=== PATIENT | female | born 1935 | race Caucasian/White ===

== ENCOUNTER 2023-05-15 20:47 | Inpatient (IN) | payer OTHER ==
[~2023-05-15] VITALS: Ht 170.2 cm; Wt 59.0 kg
[~2023-05-15 20:47] MED LIST: ALEN10TA25 PO; CALC-823 PO; GLIM2TAB PO; GLIP2.5T3 PO; LEVO25TA7 PO; LOSA-413 PO; METF-1069 PO; METO25TA3 PO; OSCD500 PO; POLY238P32 PO; PRAV10TA37 PO; PRO40 PO; PSYL575P22 PO
[2023-05-15 21:08] VITALS: BP_SYST 167; PULSE 90; RESP 18; TEMP 98.7; O2SAT 97
[2023-05-15 22:31] LABS: BASOPHILS % (AUTO) 0.3 % (0.0-2.0); EOSINOPHILS # (AUTO) 0.1 K/uL (0.0-0.4); EOSINOPHILS % (AUTO) 0.9 % (0.0-4.0); HEMATOCRIT 36.7 % (36-48); HEMOGLOBIN 12.2 g/dL (12.0-16.0); LYMPHOCYTES # (AUTO) 1.4 K/uL (1.0-5.5); LYMPHOCYTES % (AUTO) 18.2 % (20.5-51.5); MEAN CORPUSCULAR HEMOGLOBIN 28 pg (27-31); MEAN CORPUSCULAR HGB CONC 33 % (32-36); MEAN CORPUSCULAR VOLUME 84 fL (79.0-98.0); MONOCYTES # (AUTO) 0.5 K/uL (0.0-1.0); MONOCYTES % (AUTO) 6.7 % (1.7-9.3); NEUTROPHILS # (AUTO) 5.8 K/uL (1.8-7.7); NEUTROPHILS % (AUTO) 73.9 % (40.0-70.0); PLATELET COUNT (AUTO) 223 K/uL (130-430); RED BLOOD CELL COUNT(AUTO) 4.35 MIL/uL (4.2-6.2); RED CELL DISTRIBUTION WIDTH 14.7 % (9.0-15.0); WHITE BLOOD COUNT (AUTO) 7.8 K/uL (4.8-10.8)
[2023-05-15 22:43] LABS: ANION GAP 4 (5-15); CARBON DIOXIDE 31 mmol/L (23-29); CHLORIDE 98 mmol/L (98-107); CREATININE 0.92 mg/dL (0.55-1.30); GLUCOSE 299 mg/dL (74-106); POTASSIUM 4.9 mmol/L (3.5-5.1); SODIUM SERUM 133 mmol/L (136-145); UREA NITROGEN, BLOOD 21 mg/dL (8-21)
[2023-05-15] MEDS: ONDANSETRON HCL 4 MG/2 ML VIAL IVP ONE (22:44)
[2023-05-15] MEDS: ACETAMINOPHEN 500 MG TABLET PO ONE (22:45)
[2023-05-15 22:47] LABS: ALANINE AMINOTRANSFERASE 12 U/L (12-78); ALBUMIN 3.7 g/dL (3.4-4.8); ASPARTATE AMINOTRANSFERASE 7 U/L (10-37); BILIRUBIN,DIRECT 0.1 mg/dL (0.0-0.3); LIPASE 25 U/L (16-77); TOTAL BILIRUBIN 0.5 mg/dL (0.0-1.0); TOTAL PROTEIN, SERUM 7.7 g/dL (6.4-8.3)
[2023-05-15 22:51] LABS: BILIRUBIN,URINE NEGATIVE (NEGATIVE); CLARITY/URINE CLEAR (CLEAR); COLOR,URINE YELLOW (YELLOW); GLUCOSE,URINE 3+ (NEGATIVE); KETONES,URINE NEGATIVE (NEGATIVE); LEUKOCYTE ESTERASE ,URINE NEGATIVE (NEGATIVE); NITRITE, URINE NEGATIVE (NEGATIVE); PROTEIN URINE TRACE (NEGATIVE); UROBILINOGEN,URINE 0.2 (0.2-1.0)
[2023-05-15 22:53] LABS: BLOOD, URINE TRACE (NEGATIVE)
[2023-05-15 23:37] LABS: BACTERIA,URINE RARE /HPF (None Seen)
[2023-05-16] VITALS (9 sets, daily range): BP systolic 131–164; PULSE 93–111; RESP 13–18; TEMP 97.9–98.6; O2SAT 99–100
[2023-05-16] MEDS: ONDANSETRON HCL 4 MG/2 ML VIAL IVP ONE ×2 (02:19→03:04)
[2023-05-16] MEDS: MORPHINE 2 MG/ML INJ. SYRINGE IVP ONE (03:04)
[2023-05-16] MEDS: D5/0.45 NS 1,000 ML IV SCH (04:14)
[2023-05-16] MEDS ORDERED: GASTROGRAFIN 120 ML ONE ×2 (04:34→10:07)
[2023-05-16] MEDS ORDERED: EZET10TA30 PO (05:43)
[2023-05-16] MEDS ORDERED: PRAV20TA59 PO (05:43)
[2023-05-16] MEDS ORDERED: ALEN70TA27 PO (05:43)
[2023-05-16 11:34] LABS: PROTHROMBIN TIME 10.6 SECS (9.5-12.5)
[2023-05-16] MEDS ORDERED: NALOXONE HCL 0.4 MG/ML AMP (NARCAN) IVP PRN ×5 (12:00→19:00)
[2023-05-16] MEDS: HYDROmorphone 1 MG/ML INJ. CARTRIDGE ONE (12:18)
[2023-05-16] MEDS ORDERED: ceFAZolin SODIUM 2 GM VIAL ONE (17:20)
[2023-05-16] MEDS ORDERED: NS IRRIG SOLN 1000 ML IR ONE (17:20)
[2023-05-16] MEDS ORDERED: METOCLOPRAMIDE HCL 10 MG/2 ML VIAL ONE (17:20)
[2023-05-16] MEDS ORDERED: LR 1,000 ML IV.SOLN IV ONE (17:20)
[2023-05-16] MEDS ORDERED: BUPIVACAINE /PF 0.25% 30 ML VIAL INJ ONE (17:20)
[2023-05-16] MEDS ORDERED: SEVOFLURANE 15 MIN GAS INH ONE (17:20)
[2023-05-16] MEDS ORDERED: SUGAMMADEX SODIUM 200 MG/2 ML VIAL IV ONE (17:20)
[2023-05-16] MEDS ORDERED: ONDANSETRON HCL 4 MG/2 ML VIAL ONE (17:20)
[2023-05-16] MEDS ORDERED: PROPOFOL 200MG/ 20ML VIAL (DIPRIVAN) IV ONE (17:20)
[2023-05-16] MEDS ORDERED: WATER FOR IRRIGATION,STERILE 1,000 ML IRRIG.SOLN IR ONE (17:20)
[2023-05-16] MEDS ORDERED: ROCURONIUM BROMIDE 10 MG/ML (ZEMURON) ONE (17:20)
[2023-05-16] MEDS: INSULIN REGULAR, HUMAN 100 UNITS/ML, 3 ML VIAL (humuLIN R) SUBCUT PRN (17:26)
[2023-05-16] MEDS ORDERED: HYDROmorphone 1 MG/ML INJ. CARTRIDGE IVP PRN ×3 (19:00)
[2023-05-16] MEDS ORDERED: ONDANSETRON HCL 4 MG/2 ML VIAL IVP PRN (19:00)
[2023-05-16] MEDS ORDERED: hydrALAZINE HCL 20 MG/ML VIAL IV PRN (19:00)
[2023-05-16] MEDS: HYDROmorphone 1 MG/ML INJ. CARTRIDGE IVP PRN (23:13)
[2023-05-17] VITALS (19 sets, daily range): BP systolic 102–147; PULSE 102–109; RESP 12–24; TEMP 97.9–98.6; O2SAT 2–100
[2023-05-17] MEDS: INSULIN REGULAR, HUMAN 100 UNITS/ML, 3 ML VIAL (humuLIN R) ONE (01:13)
[2023-05-17] MEDS: HYDROmorphone 2 MG/ML VIAL ONE (01:13)
[2023-05-17 04:56] LABS: BASOPHILS % (AUTO) 0.1 % (0.0-2.0); HEMATOCRIT 33.9 % (36-48); HEMOGLOBIN 11.2 g/dL (12.0-16.0); LYMPHOCYTES # (AUTO) 1.1 K/uL (1.0-5.5); LYMPHOCYTES % (AUTO) 14.3 % (20.5-51.5); MEAN CORPUSCULAR HEMOGLOBIN 28 pg (27-31); MEAN CORPUSCULAR HGB CONC 33 % (32-36); MEAN CORPUSCULAR VOLUME 85 fL (79.0-98.0); MONOCYTES # (AUTO) 0.6 K/uL (0.0-1.0); NEUTROPHILS # (AUTO) 5.9 K/uL (1.8-7.7); NEUTROPHILS % (AUTO) 77.6 % (40.0-70.0); PLATELET COUNT (AUTO) 188 K/uL (130-430); RED BLOOD CELL COUNT(AUTO) 3.99 MIL/uL (4.2-6.2); RED CELL DISTRIBUTION WIDTH 14.5 % (9.0-15.0); WHITE BLOOD COUNT (AUTO) 7.5 K/uL (4.8-10.8)
[2023-05-17] MEDS: PIPERACILLIN/TAZO 3.375 GM in NS 50 ML IV SCH (05:12)
[2023-05-17 05:17] LABS: ALANINE AMINOTRANSFERASE 6 U/L (12-78); ALBUMIN 2.6 g/dL (3.4-4.8); ANION GAP 7 (5-15); ASPARTATE AMINOTRANSFERASE 11 U/L (10-37); CALCIUM 8.2 mg/dL (8.4-11.0); CARBON DIOXIDE 30 mmol/L (23-29); CHLORIDE 98 mmol/L (98-107); GLUCOSE 229 mg/dL (74-106); POTASSIUM 3.8 mmol/L (3.5-5.1); SODIUM SERUM 135 mmol/L (136-145); TOTAL BILIRUBIN 0.8 mg/dL (0.0-1.0); TOTAL PROTEIN, SERUM 5.7 g/dL (6.4-8.3); UREA NITROGEN, BLOOD 12 mg/dL (8-21)
[2023-05-17] MEDS: PIPERACILLIN/TAZOBACTAM 3.375 GM/VIAL (ZOSYN) IV ONE (05:29)
[2023-05-17] MEDS: ENOXAPARIN SODIUM 30 MG/0.3 ML SYRINGE SUBCUT SCH (09:03)
[2023-05-17] MEDS: MORPHINE 4 MG INJ. 4 MG/ML VIAL IVP PRN (09:23)
[2023-05-17] MEDS: COMMUNICATION ORDER XX ONE (10:15)
[2023-05-17] MEDS ORDERED: *TPN PER PHARMACY XX PRN (10:45)
[2023-05-17 11:00] LABS: PHOSPHORUS 3.4 mg/dL (2.7-4.5)
[2023-05-17] MEDS: LR 1,000 ML IV SCH (12:57)
[2023-05-17] MEDS: KCL 20 mEq in 100 mL (PREMIX) 100 ML IV ONE (13:14)
[2023-05-17] MEDS: HYDROmorphone 1 MG/ML INJ. CARTRIDGE IVP PRN (15:06)
[2023-05-17] MEDS: SODIUM CHLORIDE IV SCH (20:54)
[2023-05-17] MEDS: TPN CENTRAL IV SCH (20:54)
[2023-05-17] MEDS: [UNRECOGNIZED DRUG - OTHER] IV SCH (20:54)
[2023-05-17] MEDS: POTASSIUM CHLORIDE IV SCH (20:54)
[2023-05-18] VITALS (7 sets, daily range): BP systolic 110–136; PULSE 98–110; RESP 15–19; TEMP 96.6–98.5; O2SAT 95–100
[2023-05-18 04:43] LABS: BASOPHILS % (AUTO) 0.4 % (0.0-2.0); EOSINOPHILS # (AUTO) 0.2 K/uL (0.0-0.4); EOSINOPHILS % (AUTO) 1.9 % (0.0-4.0); HEMATOCRIT 30.2 % (36-48); HEMOGLOBIN 10.1 g/dL (12.0-16.0); MEAN CORPUSCULAR HEMOGLOBIN 29 pg (27-31); MEAN CORPUSCULAR HGB CONC 33 % (32-36); MEAN CORPUSCULAR VOLUME 85 fL (79.0-98.0); MONOCYTES # (AUTO) 1.1 K/uL (0.0-1.0); MONOCYTES % (AUTO) 12.4 % (1.7-9.3); NEUTROPHILS # (AUTO) 6.4 K/uL (1.8-7.7); NEUTROPHILS % (AUTO) 73.3 % (40.0-70.0); PLATELET COUNT (AUTO) 181 K/uL (130-430); RED BLOOD CELL COUNT(AUTO) 3.53 MIL/uL (4.2-6.2); RED CELL DISTRIBUTION WIDTH 14.6 % (9.0-15.0); WHITE BLOOD COUNT (AUTO) 8.7 K/uL (4.8-10.8)
[2023-05-18 04:54] LABS: ALANINE AMINOTRANSFERASE 11 U/L (12-78); ALBUMIN 2.4 g/dL (3.4-4.8); ANION GAP 4 (5-15); ASPARTATE AMINOTRANSFERASE 14 U/L (10-37); CALCIUM 7.6 mg/dL (8.4-11.0); CARBON DIOXIDE 30 mmol/L (23-29); CHLORIDE 99 mmol/L (98-107); CREATININE 1.03 mg/dL (0.55-1.30); GLUCOSE 249 mg/dL (74-106); PHOSPHORUS 3.2 mg/dL (2.7-4.5); POTASSIUM 4.1 mmol/L (3.5-5.1); SODIUM SERUM 133 mmol/L (136-145); TOTAL BILIRUBIN 0.8 mg/dL (0.0-1.0); TOTAL PROTEIN, SERUM 5.1 g/dL (6.4-8.3); TRIGLYCERIDES 24 mg/dL (30-150); UREA NITROGEN, BLOOD 23 mg/dL (8-21)
[2023-05-18 09:59] LABS: BASOPHILS % (AUTO) 0.2 % (0.0-2.0); EOSINOPHILS # (AUTO) 0.2 K/uL (0.0-0.4); EOSINOPHILS % (AUTO) 2.2 % (0.0-4.0); HEMATOCRIT 30.4 % (36-48); LYMPHOCYTES # (AUTO) 1.2 K/uL (1.0-5.5); LYMPHOCYTES % (AUTO) 15.1 % (20.5-51.5); MEAN CORPUSCULAR HEMOGLOBIN 28 pg (27-31); MEAN CORPUSCULAR HGB CONC 33 % (32-36); MEAN CORPUSCULAR VOLUME 85 fL (79.0-98.0); MONOCYTES % (AUTO) 12.8 % (1.7-9.3); NEUTROPHILS # (AUTO) 5.7 K/uL (1.8-7.7); NEUTROPHILS % (AUTO) 69.7 % (40.0-70.0); PLATELET COUNT (AUTO) 180 K/uL (130-430); RED BLOOD CELL COUNT(AUTO) 3.57 MIL/uL (4.2-6.2); RED CELL DISTRIBUTION WIDTH 14.7 % (9.0-15.0); WHITE BLOOD COUNT (AUTO) 8.2 K/uL (4.8-10.8)
[2023-05-18] MEDS: TPN CENTRAL IV SCH (21:12)
[2023-05-18] MEDS: SODIUM CHLORIDE IV SCH (21:12)
[2023-05-18] MEDS: POTASSIUM CHLORIDE IV SCH (21:12)
[2023-05-18] MEDS: [UNRECOGNIZED DRUG - OTHER] IV SCH (21:12)
[2023-05-19] VITALS (8 sets, daily range): BP systolic 124–153; PULSE 94–107; RESP 15–20; TEMP 96.7–99.7; O2SAT 93–98
[2023-05-19] MEDS: ONDANSETRON HCL 4 MG/2 ML VIAL IVP PRN (02:40)
[2023-05-19 05:57] LABS: BASOPHILS % (AUTO) 0.3 % (0.0-2.0); EOSINOPHILS # (AUTO) 0.1 K/uL (0.0-0.4); EOSINOPHILS % (AUTO) 1.9 % (0.0-4.0); HEMATOCRIT 28.1 % (36-48); HEMOGLOBIN 9.5 g/dL (12.0-16.0); LYMPHOCYTES % (AUTO) 15.9 % (20.5-51.5); MEAN CORPUSCULAR HEMOGLOBIN 28 pg (27-31); MEAN CORPUSCULAR HGB CONC 34 % (32-36); MEAN CORPUSCULAR VOLUME 85 fL (79.0-98.0); MONOCYTES # (AUTO) 0.8 K/uL (0.0-1.0); MONOCYTES % (AUTO) 11.6 % (1.7-9.3); NEUTROPHILS # (AUTO) 4.6 K/uL (1.8-7.7); NEUTROPHILS % (AUTO) 70.3 % (40.0-70.0); PLATELET COUNT (AUTO) 172 K/uL (130-430); RED BLOOD CELL COUNT(AUTO) 3.32 MIL/uL (4.2-6.2); RED CELL DISTRIBUTION WIDTH 14.3 % (9.0-15.0); WHITE BLOOD COUNT (AUTO) 6.6 K/uL (4.8-10.8)
[2023-05-19 06:22] LABS: ALANINE AMINOTRANSFERASE 6 U/L (12-78); ANION GAP 5 (5-15); ASPARTATE AMINOTRANSFERASE 6 U/L (10-37); CALCIUM 7.8 mg/dL (8.4-11.0); CARBON DIOXIDE 29 mmol/L (23-29); CHLORIDE 99 mmol/L (98-107); CREATININE 0.82 mg/dL (0.55-1.30); GLUCOSE 288 mg/dL (74-106); PHOSPHORUS 1.9 mg/dL (2.7-4.5); POTASSIUM 3.7 mmol/L (3.5-5.1); SODIUM SERUM 133 mmol/L (136-145); TOTAL BILIRUBIN 0.5 mg/dL (0.0-1.0); TOTAL PROTEIN, SERUM 5.5 g/dL (6.4-8.3); UREA NITROGEN, BLOOD 17 mg/dL (8-21)
[2023-05-19] MEDS: NA PHOS 30 MM in NS 250 ML IV ONE (11:48)
[2023-05-19 12:34] LABS: BASOPHILS % (AUTO) 0.1 % (0.0-2.0); EOSINOPHILS # (AUTO) 0.1 K/uL (0.0-0.4); EOSINOPHILS % (AUTO) 0.6 % (0.0-4.0); HEMATOCRIT 32.8 % (36-48); HEMOGLOBIN 10.9 g/dL (12.0-16.0); LYMPHOCYTES # (AUTO) 0.9 K/uL (1.0-5.5); LYMPHOCYTES % (AUTO) 10.8 % (20.5-51.5); MEAN CORPUSCULAR HEMOGLOBIN 28 pg (27-31); MEAN CORPUSCULAR HGB CONC 33 % (32-36); MEAN CORPUSCULAR VOLUME 86 fL (79.0-98.0); MONOCYTES # (AUTO) 0.7 K/uL (0.0-1.0); MONOCYTES % (AUTO) 9.4 % (1.7-9.3); NEUTROPHILS # (AUTO) 6.2 K/uL (1.8-7.7); NEUTROPHILS % (AUTO) 79.1 % (40.0-70.0); PLATELET COUNT (AUTO) 210 K/uL (130-430); RED BLOOD CELL COUNT(AUTO) 3.82 MIL/uL (4.2-6.2); RED CELL DISTRIBUTION WIDTH 14.3 % (9.0-15.0); WHITE BLOOD COUNT (AUTO) 7.9 K/uL (4.8-10.8)
[2023-05-19] MEDS ORDERED: PSYL575P22 PO (14:02)
[2023-05-19] MEDS ORDERED: SODIUM CHLORIDE IV SCH (21:00)
[2023-05-19] MEDS ORDERED: MAGNESIUM SULFATE IV SCH (21:00)
[2023-05-19] MEDS ORDERED: TPN CENTRAL IV SCH (21:00)
[2023-05-19] MEDS ORDERED: K PHOS IV SCH (21:00)
[2023-05-19] MEDS ORDERED: [UNRECOGNIZED DRUG - OTHER] IV SCH (21:00)
[2023-05-19] MEDS: K PHOS IV SCH (22:32)
[2023-05-19] MEDS: TPN CENTRAL IV SCH (22:32)
[2023-05-19] MEDS: [UNRECOGNIZED DRUG - OTHER] IV SCH (22:32)
[2023-05-19] MEDS: POTASSIUM CHLORIDE IV SCH (22:32)
[2023-05-19] MEDS: SODIUM CHLORIDE IV SCH (22:32)
[2023-05-19] MEDS: FAT EMULSIONS 250 ML IV SCH (22:37)
[2023-05-20 00:45] VITALS: BP_SYST 129; PULSE 99; RESP 19; TEMP 98.8; O2SAT 96
[2023-05-20 06:08] LABS: BASOPHILS % (AUTO) 0.2 % (0.0-2.0); EOSINOPHILS # (AUTO) 0.2 K/uL (0.0-0.4); EOSINOPHILS % (AUTO) 3.3 % (0.0-4.0); HEMATOCRIT 28.1 % (36-48); HEMOGLOBIN 9.4 g/dL (12.0-16.0); LYMPHOCYTES # (AUTO) 1.3 K/uL (1.0-5.5); LYMPHOCYTES % (AUTO) 20.8 % (20.5-51.5); MEAN CORPUSCULAR HEMOGLOBIN 29 pg (27-31); MEAN CORPUSCULAR HGB CONC 34 % (32-36); MEAN CORPUSCULAR VOLUME 85 fL (79.0-98.0); MONOCYTES # (AUTO) 0.8 K/uL (0.0-1.0); MONOCYTES % (AUTO) 13.2 % (1.7-9.3); NEUTROPHILS # (AUTO) 3.9 K/uL (1.8-7.7); NEUTROPHILS % (AUTO) 62.5 % (40.0-70.0); PLATELET COUNT (AUTO) 213 K/uL (130-430); RED BLOOD CELL COUNT(AUTO) 3.29 MIL/uL (4.2-6.2); WHITE BLOOD COUNT (AUTO) 6.2 K/uL (4.8-10.8)
[2023-05-20 06:28] LABS: ALANINE AMINOTRANSFERASE 10 U/L (12-78); ALBUMIN 1.9 g/dL (3.4-4.8); ANION GAP 6 (5-15); ASPARTATE AMINOTRANSFERASE 10 U/L (10-37); CALCIUM 7.7 mg/dL (8.4-11.0); CARBON DIOXIDE 30 mmol/L (23-29); CHLORIDE 100 mmol/L (98-107); CREATININE 0.81 mg/dL (0.55-1.30); GLUCOSE 178 mg/dL (74-106); PHOSPHORUS 2.6 mg/dL (2.7-4.5); POTASSIUM 3.5 mmol/L (3.5-5.1); SODIUM SERUM 136 mmol/L (136-145); TOTAL BILIRUBIN 0.4 mg/dL (0.0-1.0); TOTAL PROTEIN, SERUM 5.3 g/dL (6.4-8.3); UREA NITROGEN, BLOOD 13 mg/dL (8-21)
[2023-05-20 09:03] VITALS: BP_SYST 129; PULSE 64; RESP 18; TEMP 97.1; O2SAT 98
[2023-05-20 14:23] VITALS: BP_SYST 131; PULSE 102; RESP 18; TEMP 97.7; O2SAT 95
[2023-05-20 16:57] VITALS: BP_SYST 144; PULSE 93; RESP 16; TEMP 98.4; O2SAT 99
[2023-05-20 20:15] VITALS: BP_SYST 146; PULSE 97; RESP 16; TEMP 97.8; O2SAT 95
[2023-05-21] VITALS (7 sets, daily range): BP systolic 142–155; PULSE 84–95; RESP 16–17; TEMP 96.7–98.1; O2SAT 94–97
[2023-05-21 06:52] LABS: BASOPHILS % (AUTO) 0.4 % (0.0-2.0); EOSINOPHILS # (AUTO) 0.3 K/uL (0.0-0.4); EOSINOPHILS % (AUTO) 4.2 % (0.0-4.0); HEMATOCRIT 28.1 % (36-48); HEMOGLOBIN 9.4 g/dL (12.0-16.0); LYMPHOCYTES # (AUTO) 1.7 K/uL (1.0-5.5); LYMPHOCYTES % (AUTO) 26.5 % (20.5-51.5); MEAN CORPUSCULAR HEMOGLOBIN 28 pg (27-31); MEAN CORPUSCULAR HGB CONC 34 % (32-36); MEAN CORPUSCULAR VOLUME 85 fL (79.0-98.0); MONOCYTES # (AUTO) 0.8 K/uL (0.0-1.0); MONOCYTES % (AUTO) 13.6 % (1.7-9.3); NEUTROPHILS # (AUTO) 3.4 K/uL (1.8-7.7); NEUTROPHILS % (AUTO) 55.3 % (40.0-70.0); PLATELET COUNT (AUTO) 233 K/uL (130-430); RED BLOOD CELL COUNT(AUTO) 3.33 MIL/uL (4.2-6.2); RED CELL DISTRIBUTION WIDTH 13.8 % (9.0-15.0); WHITE BLOOD COUNT (AUTO) 6.2 K/uL (4.8-10.8)
[2023-05-21 07:01] LABS: ALANINE AMINOTRANSFERASE 17 U/L (12-78); ALBUMIN 1.8 g/dL (3.4-4.8); ANION GAP 6 (5-15); ASPARTATE AMINOTRANSFERASE 16 U/L (10-37); CALCIUM 7.9 mg/dL (8.4-11.0); CARBON DIOXIDE 29 mmol/L (23-29); CHLORIDE 100 mmol/L (98-107); CREATININE 0.66 mg/dL (0.55-1.30); GLUCOSE 250 mg/dL (74-106); PHOSPHORUS 2.3 mg/dL (2.7-4.5); POTASSIUM 3.3 mmol/L (3.5-5.1); SODIUM SERUM 135 mmol/L (136-145); TOTAL BILIRUBIN 0.4 mg/dL (0.0-1.0); TOTAL PROTEIN, SERUM 5.3 g/dL (6.4-8.3); UREA NITROGEN, BLOOD 11 mg/dL (8-21)
[2023-05-21] MEDS: SODIUM CHLORIDE IV SCH (09:43)
[2023-05-21] MEDS: [UNRECOGNIZED DRUG - OTHER] IV SCH (09:43)
[2023-05-21] MEDS: POTASSIUM CHLORIDE IV SCH (09:43)
[2023-05-21] MEDS: TPN CENTRAL IV SCH (09:43)
[2023-05-21] MEDS: MILK OF MAGNESIA 30 ML UDC PO ONE (11:47)
[2023-05-21] MEDS: POTASSIUM CHLORIDE 20 MEQ TABLET.ER PO ONE (11:47)
[2023-05-21] MEDS: traMADol HCL HCL 50 MG TABLET (ULTRAM) PO SCH (16:06)
[2023-05-21] MEDS ORDERED: TPN CENTRAL 0.0001 ML, SODIUM CHLORIDE 60 MEQ, POTASSIUM CHLORIDE 20 MEQ, K PHOS 15 MM,... IV SCH (21:00)
[2023-05-22 01:07] VITALS: BP_SYST 139; PULSE 95; RESP 15; TEMP 97.9; O2SAT 92
[2023-05-22 04:22] LABS: BASOPHILS % (AUTO) 0.7 % (0.0-2.0); EOSINOPHILS # (AUTO) 0.4 K/uL (0.0-0.4); EOSINOPHILS % (AUTO) 5.8 % (0.0-4.0); HEMATOCRIT 28.3 % (36-48); HEMOGLOBIN 9.5 g/dL (12.0-16.0); LYMPHOCYTES # (AUTO) 2.6 K/uL (1.0-5.5); LYMPHOCYTES % (AUTO) 41.6 % (20.5-51.5); MEAN CORPUSCULAR HEMOGLOBIN 28 pg (27-31); MEAN CORPUSCULAR HGB CONC 34 % (32-36); MEAN CORPUSCULAR VOLUME 84 fL (79.0-98.0); MONOCYTES # (AUTO) 0.8 K/uL (0.0-1.0); MONOCYTES % (AUTO) 12.6 % (1.7-9.3); NEUTROPHILS # (AUTO) 2.4 K/uL (1.8-7.7); NEUTROPHILS % (AUTO) 39.3 % (40.0-70.0); PLATELET COUNT (AUTO) 243 K/uL (130-430); RED BLOOD CELL COUNT(AUTO) 3.35 MIL/uL (4.2-6.2); RED CELL DISTRIBUTION WIDTH 14.3 % (9.0-15.0); WHITE BLOOD COUNT (AUTO) 6.2 K/uL (4.8-10.8)
[2023-05-22 04:30] LABS: ALANINE AMINOTRANSFERASE 17 U/L (12-78); ALBUMIN 1.9 g/dL (3.4-4.8); ANION GAP 5 (5-15); ASPARTATE AMINOTRANSFERASE 16 U/L (10-37); CALCIUM 7.8 mg/dL (8.4-11.0); CARBON DIOXIDE 31 mmol/L (23-29); CHLORIDE 100 mmol/L (98-107); CREATININE 0.69 mg/dL (0.55-1.30); GLUCOSE 128 mg/dL (74-106); PHOSPHORUS 2.8 mg/dL (2.7-4.5); SODIUM SERUM 136 mmol/L (136-145); TOTAL BILIRUBIN 0.3 mg/dL (0.0-1.0); TOTAL PROTEIN, SERUM 5.1 g/dL (6.4-8.3); UREA NITROGEN, BLOOD 8 mg/dL (8-21)
[2023-05-22 08:00] VITALS: BP_SYST 168; PULSE 87; TEMP 97.6; O2SAT 96
[2023-05-22 08:15] VITALS: O2SAT 96
[2023-05-22] MEDS ORDERED: LOSA25TA18 PO (09:22)
[2023-05-22 11:55] VITALS: BP_SYST 141; PULSE 101; RESP 18; TEMP 97.6; O2SAT 94
[2023-05-22 13:29] LABS: BASOPHILS % (AUTO) 0.4 % (0.0-2.0); EOSINOPHILS # (AUTO) 0.2 K/uL (0.0-0.4); EOSINOPHILS % (AUTO) 2.5 % (0.0-4.0); HEMOGLOBIN 10.5 g/dL (12.0-16.0); LYMPHOCYTES # (AUTO) 1.5 K/uL (1.0-5.5); LYMPHOCYTES % (AUTO) 18.3 % (20.5-51.5); MEAN CORPUSCULAR HEMOGLOBIN 28 pg (27-31); MEAN CORPUSCULAR HGB CONC 33 % (32-36); MEAN CORPUSCULAR VOLUME 86 fL (79.0-98.0); MONOCYTES # (AUTO) 0.9 K/uL (0.0-1.0); MONOCYTES % (AUTO) 10.9 % (1.7-9.3); NEUTROPHILS # (AUTO) 5.5 K/uL (1.8-7.7); NEUTROPHILS % (AUTO) 67.9 % (40.0-70.0); PLATELET COUNT (AUTO) 264 K/uL (130-430); RED BLOOD CELL COUNT(AUTO) 3.73 MIL/uL (4.2-6.2); WHITE BLOOD COUNT (AUTO) 8.1 K/uL (4.8-10.8)
[2023-05-22 16:22] VITALS: BP_SYST 145; PULSE 101; RESP 22; TEMP 97.5; O2SAT 95
[2023-05-22 17:36] VITALS: BP_SYST 145; PULSE 101; RESP 22; TEMP 97.5; O2SAT 95
== END 2023-05-22 17:45 | disposition home health service (06) | DRG 337 ==
LOC: SED 20:47 → SMU 05-16 02:55 → SIC 05-16 22:39 → SMU 05-17 17:00 → STU 05-17 23:18 → SMU 05-20 17:40
PROVIDERS: ADMIT Specialist; ATTEND Specialist
PROC: 0DH67UZ Insertion of Feeding Device into Stomach, Via Natural or Artificial Opening (ICD-10-PCS; 2023-05-16)
PROC: 0DNC0ZZ Release Ileocecal Valve, Open Approach (ICD-10-PCS; 2023-05-16)
PROC: 0DN80ZZ Release Small Intestine, Open Approach (ICD-10-PCS; 2023-05-16)
PROC: 0DNU0ZZ Release Omentum, Open Approach (ICD-10-PCS; principal; 2023-05-16 17:31)
PROC: 02HV33Z Insertion of Infusion Device into Superior Vena Cava, Percutaneous Approach (ICD-10-PCS; 2023-05-17)
DX: K56.50 Intestinal adhesions [bands], unspecified as to partial versus complete obstruction (principal); E78.5 Hyperlipidemia, unspecified; M81.0 Age-related osteoporosis without current pathological fracture; I11.9 Hypertensive heart disease without heart failure; E03.9 Hypothyroidism, unspecified; E11.9 Type 2 diabetes mellitus without complications; Z79.899 Other long term (current) drug therapy
CPT/HCPCS: 36415; 71045; 74018; 74240; 74250; 80048; 80053; 80076; 81000; 81001; 81015; 82948; 83690; 83735; 84100; 84478; 85025; 85610; 87081; 87086; 93005; 93306; 94760; 96374; 97110-GP; 97116-GP; 97530-GP; 99285; G0378; J1170; J1650; J1815; J2270; J2405; J2543; J2704; J2765; J3475; J3480; J3490; J7050; J7120; J7131; Q9963; Q9967

== ENCOUNTER 2023-11-03 18:45 | Emergency (ER) | payer OTHER ==
[~2023-11-03] VITALS: Ht 165.1 cm; Wt 59.0 kg
[~2023-11-03 18:45] MED LIST changes: -ALEN10TA25 PO; +ALEN70TA27 PO; -CALC-823 PO; +EZET10TA30 PO; -GLIP2.5T3 PO; -LOSA-413 PO; +LOSA25TA18 PO; -METF-1069 PO; -METO25TA3 PO; -OSCD500 PO; -POLY238P32 PO; -PRAV10TA37 PO; +PRAV20TA59 PO; -PRO40 PO
[2023-11-03 18:53] VITALS: BP_SYST 171; PULSE 82; RESP 20; TEMP 98.5; O2SAT 99
[2023-11-03 19:30] LABS: BILIRUBIN,URINE NEGATIVE (NEGATIVE); BLOOD, URINE NEGATIVE (NEGATIVE); CLARITY/URINE CLEAR (CLEAR); COLOR,URINE YELLOW (YELLOW); GLUCOSE,URINE NEGATIVE (NEGATIVE); KETONES,URINE NEGATIVE (NEGATIVE); LEUKOCYTE ESTERASE ,URINE NEGATIVE (NEGATIVE); NITRITE, URINE NEGATIVE (NEGATIVE); PH,URINE 7.5 (5.0-8.0); PROTEIN URINE NEGATIVE (NEGATIVE); UROBILINOGEN,URINE 0.2 (0.2-1.0)
[2023-11-03] MEDS: KETOROLAC TROMETHAMINE 30 MG VIAL IVP ONE (19:37)
[2023-11-03 19:50] LABS: BASOPHILS % (AUTO) 0.4 % (0.0-2.0); EOSINOPHILS # (AUTO) 0.1 K/uL (0.0-0.4); EOSINOPHILS % (AUTO) 1.5 % (0.0-4.0); HEMOGLOBIN 11.1 g/dL (12.0-16.0); LYMPHOCYTES # (AUTO) 1.7 K/uL (1.0-5.5); LYMPHOCYTES % (AUTO) 25.6 % (20.5-51.5); MEAN CORPUSCULAR HEMOGLOBIN 29 pg (27-31); MEAN CORPUSCULAR HGB CONC 34 % (32-36); MEAN CORPUSCULAR VOLUME 85 fL (79.0-98.0); MONOCYTES # (AUTO) 0.6 K/uL (0.0-1.0); MONOCYTES % (AUTO) 8.6 % (1.7-9.3); NEUTROPHILS # (AUTO) 4.1 K/uL (1.8-7.7); NEUTROPHILS % (AUTO) 63.9 % (40.0-70.0); PLATELET COUNT (AUTO) 224 K/uL (130-430); RED BLOOD CELL COUNT(AUTO) 3.88 MIL/uL (4.2-6.2); RED CELL DISTRIBUTION WIDTH 15.6 % (9.0-15.0); WHITE BLOOD COUNT (AUTO) 6.5 K/uL (4.8-10.8)
[2023-11-03 20:00] LABS: ALANINE AMINOTRANSFERASE 20 U/L (12-78); ALBUMIN 3.8 g/dL (3.4-4.8); ANION GAP 6 (5-15); ASPARTATE AMINOTRANSFERASE 21 U/L (10-37); BILIRUBIN,DIRECT 0.2 mg/dL (0.0-0.3); CALCIUM 9.1 mg/dL (8.4-11.0); CARBON DIOXIDE 31 mmol/L (23-29); CHLORIDE 99 mmol/L (98-107); CREATININE 1.14 mg/dL (0.55-1.30); GLUCOSE 210 mg/dL (74-106); LIPASE 38 U/L (16-77); POTASSIUM 4.4 mmol/L (3.5-5.1); SODIUM SERUM 136 mmol/L (136-145); TOTAL BILIRUBIN 0.5 mg/dL (0.0-1.0); TOTAL PROTEIN, SERUM 7.5 g/dL (6.4-8.3); UREA NITROGEN, BLOOD 24 mg/dL (8-21)
[2023-11-03 22:49] VITALS: BP_SYST 171; PULSE 82; RESP 20; TEMP 98.5; O2SAT 99
== END 2023-11-03 21:35 | disposition home or self-care (01) ==
LOC: SED 18:45
DX: R10.33 Periumbilical pain (principal); E11.9 Type 2 diabetes mellitus without complications; I10 Essential (primary) hypertension; Z98.890 Other specified postprocedural states; Z79.899 Other long term (current) drug therapy; Z79.2 Long term (current) use of antibiotics
CPT/HCPCS: 99285; 74176; 96374; 80076; 80048; 81001; 83690; 85025; 36415; 81003; J1885

== ENCOUNTER 2023-12-01 15:59 | Inpatient (IN) | payer OTHER ==
[~2023-12-01] VITALS: Ht 157.5 cm; Wt 59.0 kg
[2023-12-01 16:07] VITALS: BP_SYST 119; PULSE 107; RESP 22; TEMP 98.3; O2SAT 99
[2023-12-01] MEDS: NACL 0.9% 1,000 ML IV ONE (17:15)
[2023-12-01 17:30] LABS: BASOPHILS % (AUTO) 0.3 % (0.0-2.0); EOSINOPHILS % (AUTO) 0.2 % (0.0-4.0); HEMOGLOBIN 12.5 g/dL (12.0-16.0); LYMPHOCYTES # (AUTO) 1.2 K/uL (1.0-5.5); LYMPHOCYTES % (AUTO) 15.7 % (20.5-51.5); MEAN CORPUSCULAR HEMOGLOBIN 28 pg (27-31); MEAN CORPUSCULAR HGB CONC 34 % (32-36); MEAN CORPUSCULAR VOLUME 84 fL (79.0-98.0); MONOCYTES # (AUTO) 0.5 K/uL (0.0-1.0); MONOCYTES % (AUTO) 5.9 % (1.7-9.3); NEUTROPHILS # (AUTO) 6.1 K/uL (1.8-7.7); NEUTROPHILS % (AUTO) 77.9 % (40.0-70.0); PLATELET COUNT (AUTO) 265 K/uL (130-430); RED BLOOD CELL COUNT(AUTO) 4.41 MIL/uL (4.2-6.2); RED CELL DISTRIBUTION WIDTH 14.6 % (9.0-15.0); WHITE BLOOD COUNT (AUTO) 7.8 K/uL (4.8-10.8)
[2023-12-01 17:35] LABS: ALANINE AMINOTRANSFERASE 16 U/L (12-78); ALBUMIN 3.8 g/dL (3.4-4.8); ANION GAP 9 (5-15); ASPARTATE AMINOTRANSFERASE 16 U/L (10-37); CALCIUM 9.7 mg/dL (8.4-11.0); CARBON DIOXIDE 29 mmol/L (23-29); CHLORIDE 101 mmol/L (98-107); CREATININE 1.07 mg/dL (0.55-1.30); GLUCOSE 246 mg/dL (74-106); POTASSIUM 4.4 mmol/L (3.5-5.1); PROTHROMBIN TIME 10.9 SECS (9.5-12.5); SODIUM SERUM 139 mmol/L (136-145); TOTAL BILIRUBIN 0.7 mg/dL (0.0-1.0); UREA NITROGEN, BLOOD 24 mg/dL (8-21)
[2023-12-01 17:46] LABS: AMYLASE 60 U/L (0-100); BILIRUBIN,DIRECT 0.2 mg/dL (0.0-0.3); LIPASE 17 U/L (16-77)
[2023-12-01] MEDS: MORPHINE 2 MG/ML INJ. SYRINGE IVP ONE (18:53)
[2023-12-01] MEDS: BISACODYL 10 MG/SUPPOSITORY RC ONE (20:57)
[2023-12-01] MEDS: D5/0.45 NS 1,000 ML IV SCH (20:59)
[2023-12-01 22:00] VITALS: BP_SYST 146; PULSE 91; RESP 16; TEMP 97.4; O2SAT 98
[2023-12-02] VITALS: BP_SYST 138; PULSE 88; RESP 16; TEMP 97.2; O2SAT 98
[2023-12-02 08:00] VITALS: BP_SYST 128; PULSE 98; RESP 18; TEMP 98; O2SAT 96; O2SAT 97
[2023-12-02] MEDS ORDERED: MORPHINE 4 MG INJ. 4 MG/ML VIAL IVP PRN (11:15)
[2023-12-02] MEDS ORDERED: MORPHINE 2 MG/ML INJ. SYRINGE IVP PRN (11:15)
[2023-12-02] MEDS ORDERED: LORazepam 2 MG/ML VIAL IVP PRN (11:15)
[2023-12-02] MEDS ORDERED: ONDANSETRON HCL 4 MG/2 ML VIAL IVP PRN (11:15)
[2023-12-02] MEDS ORDERED: NALOXONE HCL 0.4 MG/ML AMP (NARCAN) IVP PRN (11:15)
[2023-12-02 12:04] VITALS: BP_SYST 168; PULSE 87; RESP 19; TEMP 97.8; O2SAT 97
[2023-12-02 16:31] VITALS: BP_SYST 136; PULSE 79; RESP 17; TEMP 98.3; O2SAT 95
[2023-12-02 20:00] VITALS: BP_SYST 138; PULSE 88; RESP 16; TEMP 98.1; O2SAT 98
[2023-12-03] VITALS: BP_SYST 134; PULSE 78; RESP 16; TEMP 98.2; O2SAT 98
[2023-12-03 08:00] VITALS: BP_SYST 149; PULSE 79; RESP 14; TEMP 98.1
[2023-12-03 08:25] LABS: BASOPHILS % (AUTO) 0.2 % (0.0-2.0); EOSINOPHILS # (AUTO) 0.1 K/uL (0.0-0.4); EOSINOPHILS % (AUTO) 1.1 % (0.0-4.0); HEMATOCRIT 36.1 % (36-48); HEMOGLOBIN 11.7 g/dL (12.0-16.0); LYMPHOCYTES # (AUTO) 1.3 K/uL (1.0-5.5); LYMPHOCYTES % (AUTO) 17.8 % (20.5-51.5); MEAN CORPUSCULAR HEMOGLOBIN 28 pg (27-31); MEAN CORPUSCULAR HGB CONC 32 % (32-36); MEAN CORPUSCULAR VOLUME 85 fL (79.0-98.0); MONOCYTES # (AUTO) 0.8 K/uL (0.0-1.0); NEUTROPHILS # (AUTO) 5.3 K/uL (1.8-7.7); NEUTROPHILS % (AUTO) 69.9 % (40.0-70.0); PLATELET COUNT (AUTO) 222 K/uL (130-430); RED BLOOD CELL COUNT(AUTO) 4.25 MIL/uL (4.2-6.2); RED CELL DISTRIBUTION WIDTH 14.3 % (9.0-15.0); WHITE BLOOD COUNT (AUTO) 7.5 K/uL (4.8-10.8)
[2023-12-03 08:30] VITALS: O2SAT 99
[2023-12-03 08:41] LABS: ANION GAP 7 (5-15); CALCIUM 8.5 mg/dL (8.4-11.0); CARBON DIOXIDE 34 mmol/L (23-29); CHLORIDE 98 mmol/L (98-107); CREATININE 0.95 mg/dL (0.55-1.30); GLUCOSE 352 mg/dL (74-106); POTASSIUM 3.5 mmol/L (3.5-5.1); SODIUM SERUM 139 mmol/L (136-145); UREA NITROGEN, BLOOD 19 mg/dL (8-21)
[2023-12-03 12:25] VITALS: BP_SYST 146; PULSE 79; RESP 18; TEMP 98.2; O2SAT 97
[2023-12-03 17:25] VITALS: BP_SYST 130; BP_SYST 143; PULSE 75; PULSE 94; RESP 16; RESP 18; TEMP 97.8; TEMP 98.9; O2SAT 97; O2SAT 98
[2023-12-03 20:00] VITALS: BP_SYST 124; PULSE 76; RESP 16; TEMP 97.8; O2SAT 96
[2023-12-04] VITALS (7 sets, daily range): BP systolic 110–144; PULSE 70–93; RESP 12–20; TEMP 96.8–98.6; O2SAT 95–97
[2023-12-04 07:38] LABS: BASOPHILS % (AUTO) 0.3 % (0.0-2.0); EOSINOPHILS # (AUTO) 0.2 K/uL (0.0-0.4); EOSINOPHILS % (AUTO) 3.1 % (0.0-4.0); HEMATOCRIT 32.8 % (36-48); HEMOGLOBIN 10.8 g/dL (12.0-16.0); LYMPHOCYTES # (AUTO) 1.5 K/uL (1.0-5.5); LYMPHOCYTES % (AUTO) 23.1 % (20.5-51.5); MEAN CORPUSCULAR HEMOGLOBIN 28 pg (27-31); MEAN CORPUSCULAR HGB CONC 33 % (32-36); MEAN CORPUSCULAR VOLUME 84 fL (79.0-98.0); MONOCYTES # (AUTO) 0.7 K/uL (0.0-1.0); NEUTROPHILS # (AUTO) 4.2 K/uL (1.8-7.7); NEUTROPHILS % (AUTO) 63.5 % (40.0-70.0); PLATELET COUNT (AUTO) 195 K/uL (130-430); RED CELL DISTRIBUTION WIDTH 14.1 % (9.0-15.0); WHITE BLOOD COUNT (AUTO) 6.5 K/uL (4.8-10.8)
[2023-12-04 07:49] LABS: ALANINE AMINOTRANSFERASE 14 U/L (12-78); ALBUMIN 2.6 g/dL (3.4-4.8); ANION GAP 9 (5-15); ASPARTATE AMINOTRANSFERASE 16 U/L (10-37); CARBON DIOXIDE 31 mmol/L (23-29); CHLORIDE 93 mmol/L (98-107); CREATININE 0.82 mg/dL (0.55-1.30); GLUCOSE 288 mg/dL (74-106); SODIUM SERUM 133 mmol/L (136-145); TOTAL PROTEIN, SERUM 5.9 g/dL (6.4-8.3); UREA NITROGEN, BLOOD 13 mg/dL (8-21)
[2023-12-04] MEDS: POTASSIUM CHLORIDE 20 MEQ TABLET.ER PO ONE (13:36)
[2023-12-04] MEDS: MINERAL OIL 30 ML UDC PO ONE (20:43)
[2023-12-05] VITALS: BP_SYST 111; PULSE 78; RESP 18; TEMP 97.6; O2SAT 96
[2023-12-05 07:11] LABS: BASOPHILS % (AUTO) 0.2 % (0.0-2.0); EOSINOPHILS # (AUTO) 0.2 K/uL (0.0-0.4); EOSINOPHILS % (AUTO) 3.5 % (0.0-4.0); HEMATOCRIT 31.2 % (36-48); HEMOGLOBIN 10.4 g/dL (12.0-16.0); LYMPHOCYTES # (AUTO) 1.5 K/uL (1.0-5.5); LYMPHOCYTES % (AUTO) 26.4 % (20.5-51.5); MEAN CORPUSCULAR HEMOGLOBIN 28 pg (27-31); MEAN CORPUSCULAR HGB CONC 33 % (32-36); MEAN CORPUSCULAR VOLUME 84 fL (79.0-98.0); MONOCYTES # (AUTO) 0.6 K/uL (0.0-1.0); MONOCYTES % (AUTO) 10.9 % (1.7-9.3); NEUTROPHILS # (AUTO) 3.4 K/uL (1.8-7.7); PLATELET COUNT (AUTO) 194 K/uL (130-430); RED BLOOD CELL COUNT(AUTO) 3.71 MIL/uL (4.2-6.2); RED CELL DISTRIBUTION WIDTH 14.3 % (9.0-15.0); WHITE BLOOD COUNT (AUTO) 5.7 K/uL (4.8-10.8)
[2023-12-05 07:47] VITALS: O2SAT 98
[2023-12-05 07:52] LABS: ANION GAP 6 (5-15); CALCIUM 7.9 mg/dL (8.4-11.0); CARBON DIOXIDE 28 mmol/L (23-29); CHLORIDE 103 mmol/L (98-107); CREATININE 0.73 mg/dL (0.55-1.30); GLUCOSE 296 mg/dL (74-106); POTASSIUM 3.8 mmol/L (3.5-5.1); SODIUM SERUM 137 mmol/L (136-145); UREA NITROGEN, BLOOD 9 mg/dL (8-21)
[2023-12-05 11:53] VITALS: BP_SYST 160; PULSE 111; RESP 20; TEMP 98.6; O2SAT 93
[2023-12-05 16:00] VITALS: BP_SYST 126; PULSE 89; RESP 19; TEMP 98.5; O2SAT 96
[2023-12-05] MEDS: MINERAL OIL 30 ML UDC PO SCH (21:50)
[2023-12-06 08:00] VITALS: BP_SYST 138; PULSE 82; RESP 20; TEMP 97.8; O2SAT 97
[2023-12-06 10:00] VITALS: O2SAT 98
[2023-12-06] MEDS ORDERED: SENN-270 PO (11:21)
[2023-12-06 11:45] VITALS: BP_SYST 138; PULSE 82; RESP 20; TEMP 97.8; O2SAT 97
[2023-12-06 13:35] VITALS: BP_SYST 118; PULSE 74; RESP 18; TEMP 98.7; O2SAT 96
== END 2023-12-06 12:15 | disposition home health service (06) | DRG 389 ==
LOC: SED 15:59 → SMU 17:41
PROVIDERS: ADMIT Preventive Medicine Preventive Medicine/Occupational Environmental Medicine; ATTEND Specialist
PROC: 0DH67UZ Insertion of Feeding Device into Stomach, Via Natural or Artificial Opening (ICD-10-PCS; principal; 2023-12-01)
DX: K56.600 Partial intestinal obstruction, unspecified as to cause (principal); R65.10 Systemic inflammatory response syndrome (SIRS) of non-infectious origin without acute organ dysfunction; I10 Essential (primary) hypertension; D64.9 Anemia, unspecified; E03.9 Hypothyroidism, unspecified; E11.65 Type 2 diabetes mellitus with hyperglycemia; E78.5 Hyperlipidemia, unspecified; Z79.899 Other long term (current) drug therapy
CPT/HCPCS: 36415; 71045; 74018; 74250; 80048; 80053; 80076; 82150; 82550; 82948; 83605; 83690; 84484; 85025; 85610; 85730; 93005; 99291; J2270; J7030